=== PATIENT | male | born 1970 | race Caucasian/White ===

== ENCOUNTER 2017-07-28 22:13 | Emergency (ER) | payer BC ==
--- NOTE | 2017-07-28 23:42 | EDM.PDOC ---
ED HPI GENERAL MEDICAL PROBLEM - General Chief Complaint: Lower Extremity Injury/Pain Stated Complaint: LEFT FOOT PAIN Time Seen by Provider: 07/28/17 23:42 Source of Information: Reports: Patient - History of Present Illness INITIAL COMMENTS - FREE TEXT/NARRATIVE: HISTORY AND PHYSICAL: History of present illness: [Patient presents with a left great toe pain after stubbing it into an object a couple of days prior to arrival since he has some redness and tenderness associated with the proximal joint of the calyx tender to the touch slightly pink to red no fluctuance no fever nausea vomiting chills sweats no history of gout ] Review of systems: As per history of present illness and below otherwise all systems reviewed and negative. Past medical history: As per history of present illness and as reviewed below otherwise noncontributory. Surgical history: As per history of present illness and as reviewed below otherwise noncontributory. Social history: No reported history of drug or alcohol abuse. Family history: As per history of present illness and as reviewed below otherwise noncontributory. Physical exam: HEENT: Atraumatic, normocephalic, pupils reactive, negative for conjunctival pallor or scleral icterus, mucous membranes moist, throat clear, neck supple, nontender, trachea midline. Lungs: Clear to auscultation, breath sounds equal bilaterally, chest nontender. Heart: S1S2, regular, negative for clicks, rubs, or JVD. Abdomen: Soft, nondistended, nontender. Negative for masses or hepatosplenomegaly. Negative for costovertebral tenderness. Pelvis: Stable nontender. Genitourinary: Deferred. Rectal: Deferred. Extremities: Atraumatic, negative for cords or calf pain. Neurovascular unremarkable. Neuro: Awake, alert, oriented. Cranial nerves II through XII unremarkable. Cerebellum unremarkable. Motor and sensory unremarkable throughout. Exam nonfocal. Left foot as per history of present illness otherwise unremarkable Diagnostics: [CBC uric acid Left foot 2 views ] Therapeutics: [Medrol Dosepak Indocin] Impression: [Foot pain ] Clinically consistent with gout Definitive disposition and diagnosis as appropriate pending reevaluation and review of above. L foot Pain Score (Numeric/FACES): 6 - Related Data Allergies Allergy/AdvReac Type Severity Reaction Status Date / Time latex Allergy Redness Verified 07/28/17 22:47 seasonal allergies Allergy Difficulty Uncoded 07/28/17 22:47 Breathing Home Meds: Home Meds Ascorbic Acid [Vitamin C] 500 mg PO DAILY 04/09/14 [History] Cetirizine [ZyrTEC] 10 mg PO DAILY 04/09/14 [History] Multivitamin [Multivitamins] 1 tab PO DAILY 04/09/14 [History] [place] 3/DHA/Epa/Vitamin D3 [[place]-3 + Vitamin D3 Softgel] 1,000 mg PO DAILY [History] Testosterone Cypionate [Depo-Testosterone] 1 injection IM ASDIRECTED 04/09/14 [ History] Cholecalciferol (Vitamin D3) [Vitamin D3] 1,000 units PO DAILY 04/10/14 [History ] Gluc Samuels 2KCl/Chondr/Vit C/Adam [Glucosamine-Chondr Complex] 1 tab PO BID [History] Past Medical History - Infectious Disease History Infectious Disease History: Reports: Chicken Pox - Past Surgical History HEENT Surgical History: Reports: Naso-Sinus Surgery Musculoskeletal Surgical History: Reports: Other (See Below) Other Musculoskeletal Surgeries/Procedures:: Herniated Disc repair Social & Family History - Tobacco Use Smoking Status *Q: Never Smoker - Caffeine Use Caffeine Use: Reports: Coffee - Recreational Drug Use Recreational Drug Use: No Review of Systems - Review of Systems Review Of Systems: See Below ED EXAM, GENERAL - Physical Exam Exam: See Below Course - Vital Signs Last Recorded V/S: Last Vital Signs Temp 96.9 F 07/28/17 22:42 Pulse 96 07/28/17 22:42 Resp 16 07/28/17 22:42 BP 152/94 H 07/28/17 22:42 Pulse Ox 96 07/28/17 22:42 - Orders/Labs/Meds Orders: Active Orders 24 hr Category Date Time Status Foot 2V Lt [CR] Stat Exams 07/28/17 22:27 Taken Labs: Laboratory Tests 07/28/17 07/28/17 Range/Units 23:50 23:50 WBC 8.89 (4.0-11.0) K/uL RBC 5.82 (4.50-5.90) M/uL Hgb 17.0 (13.0-17.0) g/dL Hct 48.3 (38.0-50.0) % MCV 83.0 (80.0-98.0) fL MCH 29.2 (27.0-32.0) pg MCHC 35.2 (31.0-37.0) g/dL RDW Std Deviation 40.7 (28.0-62.0) fl RDW Coeff of Ritesh 14 (11.0-15.0) % Plt Count 208 (150-400) K/uL MPV 9.80 (7.40-12.00) fL Neut % (Auto) 47.5 L (48.0-80.0) % Lymph % (Auto) 42.7 H (16.0-40.0) % [place] % (Auto) 5.8 (0.0-15.0) % Eos % (Auto) 3.0 (0.0-7.0) % Baso % (Auto) 1.0 (0.0-1.5) % Neut # (Auto) 4.2 (1.4-5.7) K/uL Lymph # (Auto) 3.8 H (0.6-2.4) K/uL [place] # (Auto) 0.5 (0.0-0.8) K/uL Eos # (Auto) 0.3 (0.0-0.7) K/uL Baso # (Auto) 0.1 (0.0-0.1) K/uL Nucleated RBC % 0.0 /100WBC Nucleated RBCs # 0 K/uL Uric Acid 6.7 (2.6-7.2) mg/dL Departure - Departure Time of Disposition: 00:35 Disposition: Home, Self-Care 01 Condition: Good Clinical Impression: Left foot pain - Discharge Information Referrals: Lillian Hernández DO [Primary Care Provider] - Forms: ED Department Discharge Additional Instructions: The following information is given to patients seen in the emergency department who are being discharged to home. This information is to outline your options for follow-up care. We provide all patients seen in our emergency department with a follow-up referral. The need for follow-up, as well as the timing and circumstances, are variable depending upon the specifics of your emergency department visit. If you don't have a primary care physician on staff, we will provide you with a referral. We always advise you to contact your personal physician following an emergency department visit to inform them of the circumstance of the visit and for follow-up with them and/or the need for any referrals to a consulting specialist. The emergency department will also refer you to a specialist when appropriate. This referral assures that you have the opportunity for follow-up care with a specialist. All of these measure are taken in an effort to provide you with optimal care, which includes your follow-up. Under all circumstances we always encourage you to contact your private physician who remains a resource for coordinating your care. When calling for follow-up care, please make the office aware that this follow-up is from your recent emergency room visit. If for any reason you are refused follow-up, please contact the [facility] emergency department at and asked to speak to the emergency department charge nurse. - My Orders Last 24 Hours: My Active Orders 07/28/17 22:27 Foot 2V Lt [CR] Stat - Assessment/Plan Last 24 Hours: My Active Orders 07/28/17 22:27 Foot 2V Lt [CR] Stat
[2017-07-29] MEDS ORDERED: Ketorolac 60 MG/2 ML SDV IM ONE (00:37)
[2017-07-29 00:54] VITALS: BP 144/97
--- NOTE | 2017-07-29 19:09 | CR ---
EXAM DATE: 07/28/17 PATIENT'S AGE: 47 Patient: AJAY SQUIRES Facility: [place], [place] Site . Site : 1970 Study: XRay Extremity Left foot [id number] 11:08:05 PM Ordering Physician: Doctor Butcher Final Report: Fall 2 views of left foot. FINDINGS: There is normal alignment. Calcaneal spur. No acute fractures seen. Mild soft tissue swelling. IMPRESSION: 1. No acute fracture. Dictated by Susie Ornelas MD @ Jul 28 2017 11:36PM (Electronic Signature) Report Signed by Proxy. ORLY
== END 2017-07-29 01:00 | disposition home or self-care (01) ==
LOC: MW.ED 22:13
DX: M79.672 Pain in left foot (principal); Z79.899 Other long term (current) drug therapy; Z91.040 Latex allergy status
CPT/HCPCS: 36415; 73620; 84550; 85025; 96372; 99283; J1885

== ENCOUNTER 2018-10-19 06:16 | Emergency (ER) | payer BC ==
[2018-10-19 06:27] VITALS: BP 139/99
--- NOTE | 2018-10-19 06:52 | EDM.PDOC ---
ED HPI GENERAL MEDICAL PROBLEM - General Chief Complaint: Laceration Stated Complaint: LEFT PINKY CUT Time Seen by Provider: 10/19/18 06:49 Source of Information: Reports: Patient - History of Present Illness INITIAL COMMENTS - FREE TEXT/NARRATIVE: HISTORY AND PHYSICAL: History of present illness: []Patient presents with a cut on his right pinky, he avulsed skin from the left pinky actually sliced it off, he was reaching for a plate in the cupboard and dropped it landed on the table and broke in trying to catch it he sheared the lateral skin tissue off the pinky neurovascular is intact no fever nausea vomiting chills sweats injury occurred last night however continues to bleed through his bandaging lesion is 3 cm long and 1 cm wide, no suturing performed Review of systems: As per history of present illness and below otherwise all systems reviewed and negative. Past medical history: As per history of present illness and as reviewed below otherwise noncontributory. Surgical history: As per history of present illness and as reviewed below otherwise noncontributory. Social history: No reported history of drug or alcohol abuse. Family history: As per history of present illness and as reviewed below otherwise noncontributory. Physical exam: HEENT: Atraumatic, normocephalic, pupils reactive, negative for conjunctival pallor or scleral icterus, mucous membranes moist, throat clear, neck supple, nontender, trachea midline. Lungs: Clear to auscultation, breath sounds equal bilaterally, chest nontender. Heart: S1S2, regular, negative for clicks, rubs, or JVD. Abdomen: Soft, nondistended, nontender. Negative for masses or hepatosplenomegaly. Negative for costovertebral tenderness. Pelvis: Stable nontender. Genitourinary: Deferred. Rectal: Deferred. Extremities: Atraumatic, negative for cords or calf pain. Neurovascular unremarkable. Neuro: Awake, alert, oriented. Cranial nerves II through XII unremarkable. Cerebellum unremarkable. Motor and sensory unremarkable throughout. Exam nonfocal. Diagnostics: [] Therapeutics: [Silver nitrate Bacitracin Telfa tube dressing Standard wound care instructions ] Impression: [] avulsion of skin Definitive disposition and diagnosis as appropriate pending reevaluation and review of above. Left Finger-Little Pain Score (Numeric/FACES): 3 - Related Data Allergies Allergy/AdvReac Type Severity Reaction Status Date / Time latex Allergy Redness Verified 10/19/18 06:19 seasonal allergies Allergy Difficulty Uncoded 10/19/18 06:19 Breathing Home Meds: Home Meds Ascorbic Acid [Vitamin C] 500 mg PO DAILY 04/09/14 [History] Cetirizine [ZyrTEC] 10 mg PO DAILY 04/09/14 [History] Multivitamin [Multivitamins] 1 tab PO DAILY 04/09/14 [History] [place] 3/DHA/Epa/Vitamin D3 [[place]-3 + Vitamin D3 Softgel] 1,000 mg PO DAILY [History] Cholecalciferol (Vitamin D3) [Vitamin D3] 1,000 units PO DAILY 04/10/14 [History ] Gluc Samuels 2KCl/Chondr/Vit C/Adam [Glucosamine-Chondr Complex] 1 tab PO BID [History] Fluticasone Propionate [Flonase] 16 gm NASLF ASDIRECTED 10/19/18 [History] Past Medical History - Infectious Disease History Infectious Disease History: Reports: Chicken Pox - Past Surgical History HEENT Surgical History: Reports: Naso-Sinus Surgery Musculoskeletal Surgical History: Reports: Other (See Below) Other Musculoskeletal Surgeries/Procedures:: Herniated Disc repair Social & Family History - Family History Family Medical History: Noncontributory - Tobacco Use Smoking Status *Q: Never Smoker - Caffeine Use Caffeine Use: Reports: Coffee - Recreational Drug Use Recreational Drug Use: No ED ROS GENERAL - Review of Systems Review Of Systems: See Below ED EXAM, SKIN/RASH Exam: See Below Course - Vital Signs Last Recorded V/S: Last Vital Signs Temp 96.0 F 10/19/18 06:21 Pulse 68 10/19/18 06:21 Resp 17 10/19/18 06:21 BP 139/99 H 10/19/18 06:21 Pulse Ox 97 10/19/18 06:21 Departure - Departure Time of Disposition: 06:50 Disposition: Home, Self-Care 01 Condition: Good Clinical Impression: Avulsion of soft tissue - Discharge Information Referrals: PCP,None [Primary Care Provider] - Additional Instructions: Bacitracin Telfa tube dressing Change bandaging in 48 hours or if current bandaging bleeds through or becomes soiled, change as needed Return if symptoms persist or worsen Follow-up with primary care in 2 weeks sooner as needed [facility] [address] [place] [id number] The following information is given to patients seen in the emergency department who are being discharged to home. This information is to outline your options for follow-up care. We provide all patients seen in our emergency department with a follow-up referral. The need for follow-up, as well as the timing and circumstances, are variable depending upon the specifics of your emergency department visit. If you don't have a primary care physician on staff, we will provide you with a referral. We always advise you to contact your personal physician following an emergency department visit to inform them of the circumstance of the visit and for follow-up with them and/or the need for any referrals to a consulting specialist. The emergency department will also refer you to a specialist when appropriate. This referral assures that you have the opportunity for follow-up care with a specialist. All of these measure are taken in an effort to provide you with optimal care, which includes your follow-up. Under all circumstances we always encourage you to contact your private physician who remains a resource for coordinating your care. When calling for follow-up care, please make the office aware that this follow-up is from your recent emergency room visit. If for any reason you are refused follow-up, please contact the [facility] emergency department at and asked to speak to the emergency department charge nurse.
[2018-10-19] MEDS ORDERED: Silver Sulfadiazine 1% Crm 50 GM Tube TOP ONE (06:54)
== END 2018-10-19 07:21 | disposition home or self-care (01) ==
LOC: MW.ED 06:16
DX: S61.217A Laceration without foreign body of left little finger without damage to nail, initial encounter (principal); Z91.040 Latex allergy status; Z91.09 Other allergy status, other than to drugs and biological substances; Z79.899 Other long term (current) drug therapy; W26.8XXA Contact with other sharp object(s), not elsewhere classified, initial encounter
CPT/HCPCS: 99282; A9270